=== PATIENT | male | born 1955 | race Caucasian/White ===

== ENCOUNTER → 2020-02-19 15:31 | Outpatient (CLI) | payer MEDICARE, SELFPAY ==
[2020-02-23 09:14] LABS: PSA, Free 0.98 ng/mL; Prostate Specific Ag 5.5 ng/mL (0.0-4.0)
== END ==
PROVIDERS: Visit Provider Urology
DX: R97.20 Elevated prostate specific antigen [PSA] (principal)
CPT/HCPCS: 36415; 84153; 84154

== ENCOUNTER → 2020-09-05 15:25 | Outpatient (CLI) | payer MEDICARE, SELFPAY ==
[2020-09-07 14:54] LABS: Prostate Specific Ag 5.8 ng/mL (0.0-4.0)
== END ==
PROVIDERS: Visit Provider Urology
DX: N40.1 Benign prostatic hyperplasia with lower urinary tract symptoms (principal)
CPT/HCPCS: 36415; 84153; 84154

== ENCOUNTER → 2021-03-06 15:58 | Outpatient (CLI) | payer MEDICARE, SELFPAY ==
[2021-03-09 10:41] LABS: PSA, Free 1.18 ng/mL; Prostate Specific Ag 7.7 ng/mL (0.0-4.0)
== END ==
PROVIDERS: Visit Provider Urology
DX: R97.20 Elevated prostate specific antigen [PSA] (principal)
CPT/HCPCS: 36415; 84153; 84154

== ENCOUNTER → 2021-09-11 15:40 | Outpatient (CLI) | payer MEDICARE, BC, SELFPAY ==
[2021-09-13 10:27] LABS: PSA, Free 0.84 ng/mL; Prostate Specific Ag 5.5 ng/mL (0.0-4.0)
== END ==
PROVIDERS: Visit Provider Urology
DX: R97.20 Elevated prostate specific antigen [PSA] (principal)
CPT/HCPCS: 36415; 84153; 84154

== ENCOUNTER → 2022-03-30 15:33 | Outpatient (CLI) | payer MEDICARE, BC, SELFPAY ==
[2022-04-01 09:01] LABS: PSA, Free 0.95 ng/mL; Prostate Specific Ag 6.7 ng/mL (0.0-4.0)
== END ==
PROVIDERS: PCP Family Medicine; Visit Provider Urology
DX: R97.20 Elevated prostate specific antigen [PSA] (principal)
CPT/HCPCS: 36415; 84153; 84154